=== PATIENT | female | born 1995 | race Caucasian/White ===

== ENCOUNTER 2020-04-19 12:17 | Outpatient (CLI) | payer OTHER ==
--- NOTE | 2020-04-19 14:31 | ULT ---
THYROID ULTRASOUND: 04/19/20 INDICATIONS: Hypothyroidism. There are no comparison studies. FINDINGS: Thyroid gland is nodular and diffusely heterogeneous. Right lobe measurement: 4.5 x 2.2 x 1.7 cm. Left lobe measurement: 5.5 x 2.2 x 2.3 cm. No discrete mass or nodule identified. IMPRESSION: Enlarged heterogeneous nodular thyroid gland. No discrete mass identified. Smaller nodules may be obs cured. Suggest follow-up thyroid ultrasound in six months to confirm stability. POS: [facility]
== END 2020-04-19 12:18 | disposition home or self-care (01) ==
LOC: BICULT 12:17
PROVIDERS: ATTEND Family Medicine
DX: E03.9 Hypothyroidism, unspecified (principal); E04.2 Nontoxic multinodular goiter
CPT/HCPCS: 76536